=== PATIENT | male | born 1950 | race African-American/Black ===

== ENCOUNTER 2019-03-01 15:50 | Inpatient (IN) ==
[2019-03-01] MEDS ORDERED: ASPIRIN PO ONE (15:56)
--- NOTE | 2019-03-01 16:02 | EKG Report ---
Test Performed on : 03/01/2019 3:52:29 PM Test Reason : cp Blood Pressure : / mmHG Vent. Rate : 064 BPM Atrial Rate : 340 BPM P-R Int : 000 ms QRS Dur : 094 ms QT Int : 422 ms P-R-T Axes : 000 -35 188 degrees QTc Int : 435 ms Atrial fibrillation. Left axis deviation ST & T wave abnormality, consider lateral ischemia Abnormal ECG No previous ECGs available Unconfirmed Result
[2019-03-01 16:30] LABS: BASO# 0.05 X1000 (0.0-0.2); BASO% 0.3 % (0.0-0.8); EOS# 0.12 X1000 (0.0-0.7); EOS% 0.8 % (0.0-10.0); HEMATOCRIT 37.9 % (42.0-52.0); HEMOGLOBIN 12.1 g/dL (14.0-18.0); IMM GRAN# 0.05 X1000 (0.0-0.04); IMM GRAN% 0.3 % (0.0-0.5); LYMPH# 2.02 X1000 (1.2-3.4); LYMPH% 12.7 % (20.5-51.1); MCH 28.5 PG (27-31); MCHC 31.9 g/dL (33-37); MCV 89.4 FL (81-99); MPV 10.1 FL (7.4-10.4); NEUT# 12.89 X1000 (1.4-6.5); NEUT% 80.9 % (42.2-75.2); PLT 264 X1000 (130-400); RBC 4.24 XMIL (4.7-6.1); RDW 14.9 % (11.5-14.5); WBC 15.93 X1000 (4.8-10.8)
[2019-03-01 16:34] LABS: INR 3.08; PROTIME 32.7 Seconds (11.0-16.0); PTT 35.6 Seconds (22.3-41.8)
--- NOTE | 2019-03-01 16:45 | PROVIDER DOCUMENTATION ---
HPI-Chest Pain - General Chief Complaint: Chest Pain Stated Complaint: CO Time Seen by Provider: 03/01/19 16:22 Source: patient, family Allergies/Adverse Reactions: Patient Allergies Allergy/AdvReac Type Severity Reaction Status Date / Time atorvastatin [From Lipitor] Allergy ANAPHYLAXIS Verified 03/01/19 16:41 Home Medications: Home Medication List Medication Instructions Recorded Confirmed Last Taken Type Allopurinol [Zyloprim] 300 mg PO DAILY 03/01/19 03/01/19 Unknown History Brimonidine 0.2% Ophth Soln 1 drp BOTH EYES Q8HR 03/01/19 03/01/19 Unknown History [Alphagan 0.2% Ophth Soln] Colchicine [Colcrys] 0.6 mg PO PRN PRN 03/01/19 03/01/19 Unknown History Diltiazem HCl [Cardizem Cd] 180 mg PO BID 03/01/19 03/01/19 Unknown History Ergocalciferol (Vitamin D2) 50,000 unit PO Q7D 03/01/19 03/01/19 02/22/19 History [Vitamin D2] Furosemide 10 mg PO DAILY 03/01/19 03/01/19 Unknown History Latanoprost/Pf [Latanoprost 0.005% 1 drp OPHTHALMIC (EYE) QHS 03/01/19 03/01/19 Unknown History Eye Drop] Losartan [Cozaar] 50 mg PO DAILY 03/01/19 03/01/19 Unknown History Rivaroxaban [Xarelto] 15 mg PO DAILY 03/01/19 03/01/19 Unknown History - History of Present Illness-CP Nature of Presenting Problem: 54 YO M pmh for CHF, CKD, Afib on Eliquis presents with CP x 4 hours that is left sided, non radiating, 4/10, no associated blurry vision, diaphoresis, SOB. at bedside. Follows with Cardiology in [place]. Location: reports: other (left sided) Chest Pain Radiation: reports: no radiation Quality of Pain: reports: aching, throbbing Severity in ED: mild Onset/Duration: 4-6 hours ago Timing: still present Context/Activities at Onset: reports: none Modifying Factors: improves with: nothing Associated Symptoms: denies: diaphoresis, nausea, shortness of breath, syncope, vomiting, weakness Nitro Today/Relief: no nitro taken today Aspirin Treatment Today: no aspirin today Similar Symptoms Previously?: Yes Recently Seen Here or By Another Healthcare Provider: No Review of Systems - Adult - REVIEW OF SYSTEMS - ADULT Constitutional: reports: see HPI. denies: chills, fever Eyes: reports: no symptoms reported. denies: blurred vision, double vision Ears, Nose, Mouth & Throat: reports: no symptoms reported Cardiovascular: reports: see HPI, chest pain. denies: edema Respiratory: denies: cough, shortness of breath, wheezing Gastrointestinal: reports: no symptoms reported Genitourinary: reports: no symptoms reported Musculoskeletal: reports: no symptoms reported Integumentary: reports: no symptoms reported Past History - Adult - PAST MEDICAL HISTORY-ADULT Review of Records: reports: Medications Reviewed, Social history reviewed & non- contributory. Major Childhood Illnesses: reports: denies history Cardiovascular: reports: A-Fib, CHF Respiratory: reports: denies history Gastrointestinal: reports: denies history Genitourinary: reports: kidney disease Other Conditions: reports: other (GOUT) - PRIOR SURGERIES/PROCEDURES Surgical/Procedure History: denies: recent surgery - FAMILY HISTORY Family History: reviewed, not pertinent - SOCIAL HISTORY Smoking: denies Substance Use: denies Living Situation: family Physical Exam-General - CONSTITUTIONAL General Appearance: appears well, alert, no apparent distress - EYES Eyes: PERRL/EOMI, pink conjunctivae, other (wears glasses) - HEAD, EARS, NOSE, MOUTH & THROAT HENMT: normocephalic/atraumatic, moist mucous membranes - NECK Neck: supple - RESPIRATORY Respiratory: lungs clear, normal breath sounds, no pleuratic chest pain, no respiratory distress, no accessory muscle use - CARDIOVASCULAR Cardiovascular: no edema, no murmur - GASTROINTESTINAL (ABDOMEN) Abdominal Exam: normal bowel sounds, non tender, soft - MUSCULOSKELETAL Extremity: normal range of motion, normal gait, no pedal edema - SKIN Integumentary: normal color, normal turgor, warm/dry - NEUROLOGIC Neurologic: grossly normal - PSYCHIATRIC Psych/Mental Status: normal mood/affect, oriented x 3 - HEART Score HEART Score: History: Slightly Suspicious HEART Score: ECG: Non-Specific Repolarization Disturbance/LBBB/PM HEART Score: Age: > or = 65 Years HEART Score: Risk Factors for Atherosclerotic Disease: 1 or 2 Risk Factors HEART Score: Troponin: < or = Normal Limit Total HEART Score:: 4 Progress - PLAN OF CARE/RESULTS Progress/Plan/Lab Results: Vital Signs - 8 hr 03/01/19 16:01 Temperature 97.3 F L Pulse Rate 66 Respiratory Rate 19 Blood Pressure 122/71 O2 Sat by Pulse Oximetry 99 Laboratory Results - last 24 hr 03/01/19 03/01/19 03/01/19 14:34 16:10 16:10 WBC 15.93 H RBC 4.24 L Hgb 12.1 L Hct 37.9 L MCV 89.4 MCH 28.5 MCHC 31.9 L RDW Std Deviation 14.9 H Plt Count 264 MPV 10.1 Immature Gran % (Auto) 0.3 Neut % (Auto) 80.9 H Lymph % (Auto) 12.7 L Beauregard % (Auto) 5.0 Eos % (Auto) 0.8 Baso % (Auto) 0.3 Immature Gran # (Auto) 0.05 H Neut # (Auto) 12.89 H Lymph # (Auto) 2.02 Beauregard # (Auto) 0.80 H Eos # (Auto) 0.12 Baso # (Auto) 0.05 PT 32.7 H INR 3.08 PTT (Actin FS) 35.6 Sodium 138 Potassium 3.8 Chloride 95 L Carbon Dioxide 18 L Anion Gap 25 BUN 27 H Creatinine 2.4 H Estimated GFR/1.73 m2 32 BUN/Creatinine Ratio 11 Glucose 393 H Calculated Osmolality 297 Calcium 8.9 Total Bilirubin 0.75 AST 20 ALT 8 L Alkaline Phosphatase 66 Creatine Kinase 188 Troponin T Vbr-[id number] Pept Total Protein 8.7 H Albumin 4.2 Globulin 4.5 Albumin/Globulin Ratio 0.9 03/01/19 03/01/19 16:10 16:10 WBC RBC Hgb Hct MCV MCH MCHC RDW Std Deviation Plt Count MPV Immature Gran % (Auto) Neut % (Auto) Lymph % (Auto) Beauregard % (Auto) Eos % (Auto) Baso % (Auto) Immature Gran # (Auto) Neut # (Auto) Lymph # (Auto) Beauregard # (Auto) Eos # (Auto) Baso # (Auto) PT INR PTT (Actin FS) Sodium Potassium Chloride Carbon Dioxide Anion Gap BUN Creatinine Estimated GFR/1.73 m2 BUN/Creatinine Ratio Glucose Calculated Osmolality Calcium Total Bilirubin AST ALT Alkaline Phosphatase Creatine Kinase Troponin T < 0.010 [id number] Pept 1925 H Total Protein Albumin Globulin Albumin/Globulin Ratio Orders Category Date Time Status Cardiac Monitoring DIRECTED Care 03/01/19 15:56 Active Oxygen Therapy- ED Nursing DIRECTED Care 03/01/19 15:56 Active CHEST-2 VIEWS [RAD] Stat Exams 03/01/19 15:56 Completed CBC WITH ELECTRONIC DIFF [HEME] Stat Lab 03/01/19 16:10 Completed CK PROFILE [SP CHEM] Stat Lab 03/01/19 16:10 Completed COMPREHENSIVE METABOLIC PANEL [CHEM] Stat Lab 03/01/19 16:10 Completed PRO B-NATRIURETIC PEPTIDE Stat Lab 03/01/19 16:10 Completed PROTIME WITH INR [COAG] Stat Lab 03/01/19 14:34 Completed PTT [COAG] Stat Lab 03/01/19 14:34 Completed TROPONIN T Stat Lab 03/01/19 16:10 Completed 0.9% Sodium Chloride Inj [Ns] 500 ml Med 03/01/19 17:44 Discontinued IV 999 mls/hr Aspirin Med 03/01/19 15:56 Discontinued 325 mg PO NOW ONE Insulin Lispro [Humalog] Med 03/01/19 17:51 Discontinued 5 units SUBQ NOW ONE Morphine Med 03/01/19 17:51 Discontinued 4 mg IV NOW ONE CP/SOB/Palp >45 yrs of Age Stat Oth 03/01/19 15:56 Ordered EKG [EKG] Stat Ther 03/01/19 15:56 Draft Result Diagrams: 03/01/19 16:10 03/01/19 16:10 - REASSESSMENT Reassessment #1 Time Reassessed: 17:37 Status: unchanged (pt was given ASA upon arrival with no improvement in CP. labs reviewed and showing hyperglycemia and 15k WBC with elevated creat, however pt has hx of CKD. plan for admission, CP workup.) - EKG 1 Time of EKG reading by physician:: 16:03 EKG Read and Signed by:: Liborio Austin EKG Interpretation (*Must complete 3 of following elements*): Abnormal Rate: 64 Rhythm: Afib [place]: left QRS: normal ST Wave: non-specific ST changes Prior EKG Comparison: no prior EKG - CONSULTS/PCP/HOSPITALIST Notification #1 *Consult/PCP/Hospitalist*: Spoke with Jessica, admitting to Dr. Hensley Time Discussed: 18:23 Consult Disposition: Will see in ED Departure - Departure Date of Disposition Decision: 03/01/19 Time of Disposition Decision: 17:47 DIAGNOSIS: Leukocytosis, Chest pain, Hyperglycemia Disposition: ADMITTED INPATIENT 09 Certified Medical Emergency: Emergent Condition: Stable Referrals and Follow-Ups: None,PCP [Primary Care Provider] - - Critical Care Note This patient required my direct & personal management of CC.: No Attestation - Physician/ SHERRIE Attestation The physician spent face to face time with patient:: Yes Advanced Practice Provider documentation review:: Supervising physician onsite and consulted in the evaluation and care of this patient. The physician did have a face to face encounter with the patient.
[2019-03-01 16:53] LABS: ALB/GLOB RATIO 0.9; ALBUMIN 4.2 g/dL (3.5-5.0); CALCIUM 8.9 mg/dL (8.8-10.2); CREATININE 2.4 mg/dL (0.7-1.2); POTASSIUM 3.8 mmol/L (3.5-5.1); TOTAL BILIRUBIN 0.75 mg/dL (0.20-1.00); TOTAL PROTEIN 8.7 g/dL (6.3-8.3)
--- NOTE | 2019-03-01 17:32 | Diag Imaging Result Doc PS360 ---
EXAM: CHEST-2 VIEWS INDICATION: cp TECHNIQUE: 2 views COMPARISON: None. FINDINGS: The lungs are grossly clear. There is no discrete pleural fluid collection or pneumothorax. The cardiomediastinal silhouette and central vasculature are grossly unremarkable. IMPRESSION: No evidence of acute pathology by plain radiograph. Electronically signed by Nitesh Pérez 03/01/2019 5:30 PM
[2019-03-01] MEDS ORDERED: NS 500 ML IV ONE (17:44)
[2019-03-01] MEDS ORDERED: MORPHINE IV ONE (17:51)
[2019-03-01] MEDS ORDERED: HUMALOG SUBQ ONE (17:51)
[2019-03-01] MEDS ORDERED: COLCRYS PO PRN (19:33)
[2019-03-01 19:49] LABS: ALLEN TEST YES; BE -2.3 mmoll (-3.0-3.0); BLOOD TYPE ARTERIAL; HCO3-(ACT) 23.1 mmoll (20.0-26.0); METHB 1.1 % (0.0-1.5); O2(CT) 15.2 mL/dL (15.0-23.0); O2HB 94.5 % (95.0-99.0); PCO2(98.6) 38 mmHg (35-45); PO2(98.6) 73 mmHg (60-100); SAMPLE BLOOD; SAO2 97.6 % (95.0-100.0); THB 11.4 g/dL (11.5-17.4); pH(98.6) 7.38 (7.35-7.45)
[2019-03-01 19:50] LABS: MODALITY ROOM AIR
[2019-03-01] MEDS ORDERED: NS 1,000 ML IV SCH (20:30)
[2019-03-01] MEDS ORDERED: MORPHINE IV PRN (20:48)
[2019-03-01] MEDS ORDERED: ZOFRAN IV PRN (20:48)
[2019-03-01] MEDS ORDERED: TYLENOL PO PRN (20:48)
[2019-03-01] MEDS: HUMALOG SUBQ SCH (20:57)
[2019-03-01] MEDS: NITROGLYCERIN TOP SCH (21:01)
[2019-03-01] MEDS: CARDIZEM CD PO SCH (21:01)
[2019-03-01 21:48] LABS: HEMOGLOBIN A1C 6.1 % (4.8-6.0)
--- NOTE | 2019-03-01 22:17 | HISTORY AND PHYSICAL ---
CHIEF COMPLAINT: Chest pain. HISTORY OF PRESENT ILLNESS: This is a 69-year-old male who comes in with complaint of chest pain left sided that did not radiate. He stated it was around 5/10. He did have shortness of breath and diaphoresis. Patient is known to have congestive heart failure, chronic kidney disease and atrial fibrillation which he is chronically anticoagulated for. He apparently took an aspirin which did not ease his pain. We will try nitroglycerin patches. The patient is reportedly unable to take statins for his hyperlipidemia. He will be admitted to the medical floor for further evaluation and treatment. PAST MEDICAL HISTORY: See HPI. PREVIOUS SURGICAL HISTORY: Right eye detached retinal repair and bunionectomy. SOCIAL HISTORY: He lives alone. No tobacco, alcohol, illicit drugs. He is retired from the [employer]. FAMILY HISTORY: Paternal diabetes mellitus. States that he is not sure of what or the reason a lot of people in his family as [place] was [place] when a lot of them passed. ALLERGIES: Statins causing anaphylaxis. HOME MEDICATIONS: Allopurinol 300 mg p.o. daily, Alphagan ophthalmic solution 0.25, Colcrys 0.6 mg p.o. daily, diltiazem 180 mg p.o. b.i.d., vitamin D2 of 50,000 units p.o. q.7 days, furosemide 10 mg p.o. daily, latanoprost 0.005% eye drop both eyes at bedtime, losartan 50 mg p.o. daily, Xarelto 50 mg p.o. daily. REVIEW OF SYSTEMS: Fourteen-point review of systems conducted with the patient. Pertinent positives listed above in HPI. All other systems reviewed and found to be negative. PHYSICAL EXAMINATION: VITAL SIGNS: Temperature 97.3, pulse 66, respirations 19, blood pressure 122/71, oxygen saturation 99% on room air. GENERAL: Pleasant 69-year-old male alert and oriented times 3, answers all questions appropriately. He is lying in the ER stretcher in no acute distress. HEENT: Head is atraumatic, normocephalic. Pupils equal, round, reactive to light. Extraocular eye movement is intact. Sclerae are anicteric. Conjunctiva is pink. Oral mucosa is moist. NECK: Supple. No JVD. No thyromegaly. Trachea is midline. No cervical lymphadenopathy. CARDIAC: S1, S2 appreciated. Irregularly irregular. No murmurs, gallops, rubs. LUNGS: Clear to auscultation bilaterally. No rhonchi, wheezes, rales. Symmetric rise and fall with respirations. ABDOMEN: Soft, nondistended, nontender. Bowel sounds present all 4 quadrants, normoactive. No pulsatile mass. No organomegaly. EXTREMITIES: No clubbing, cyanosis or edema. Two-plus pedal pulses bilaterally. GENITOURINARY: No bladder distention. Patient voids. Otherwise deferred. NEUROLOGICAL: Alert and oriented times 3. Cranial nerves 2 through 12 appear to be grossly intact. DIAGNOSTIC DATA: Chest x-ray: No effusions or infiltrates. No increased pulmonary vascular congestion. Lungs are grossly normal. LABORATORY DATA: WBC 15.93. Hemoglobin 12.1. Hematocrit 37.9. Platelet count 264. PT 32.7. INR 3.08. Sodium 138. Potassium 3.8. Chloride 95. Carbon dioxide 18. BUN 27. Creatinine 2.4. Glucose 393. ASSESSMENT AND PLAN: 1. Chest pain, rule out acute myocardial infarction. We will order stress test for tomorrow morning, repeat EKG, trend cardiac enzymes. We will give morphine as needed for pain, nitroglycerin 1 inch topically q.6 hours. 2. Hypertension. Continue home medication. 3. Diabetes mellitus type 2 with hyperglycemia. Check hemoglobin A1c, sliding scale blood sugars q.4 hours which will be treated with low-dose sliding scale. 4. Leukocytosis. I am unsure if this is reactive. A urine culture here is pending. The patient does not have other complaints. His chest x-ray was unremarkable. He denied any type of fever and chills or cough. We will check urinalysis and see if it warrants giving patient antibiotics for possible urinary tract infection. 5. Chronic kidney disease, appears to be stage 3. We do not have the patient's baseline creatinine. He was given a liter bolus in the emergency room. We will continue gentle hydration with crystalloids overnight. Recheck laboratory data tomorrow morning. We will be mindful of his fluid volume status with strict I's and O's as he does have a history of congestive heart failure. Further recommendations per patient clinical course. Dictated by GONZALEZ Cornell for Hayder Hensley MD I have performed a face to face diagnostic evaluation. Labs/Xrays- reviewed. Exam- Chest- clear, CV- regular. A/P- Chest Pain- Admit, Cardiac work up, Cardiology consult. Dr. Hensley cc: GONZALEZ Cornell MD [facility]
[2019-03-01] MEDS: XALATAN 0.005% OPH SOLN BOTH EYES SCH (23:14)
[2019-03-01] MEDS: ALPHAGAN 0.2% OPHTH SOLN BOTH EYES SCH (23:14)
[2019-03-02] MEDS: NITROGLYCERIN TOP SCH ×4 (02:50→23:59)
[2019-03-02] MEDS: HUMALOG SUBQ SCH ×6 (03:51→20:16)
[2019-03-02 04:49] LABS: URINE SOURCE CLEAN CATCH
[2019-03-02 04:51] LABS: BILIRUBIN URINE NEGATIVE (NEGATIVE); BLOOD URINE NEGATIVE (NEGATIVE); COLOR YELLOW; GLUCOSE URINE NEGATIVE (NEGATIVE); KETONE URINE NEGATIVE (NEGATIVE); LEUKOCYTES URINE LARGE (NEGATIVE); NITRITE URINE NEGATIVE (NEGATIVE); PH URINE 5.5; PROTEIN URINE 50 mg/dL (NEGATIVE); SP GRAVITY URINE 1.016; TURBIDITY URINE HAZY (CLEAR); UROBILINOGEN URINE NORMAL (NORMAL)
[2019-03-02 04:53] LABS: UR EPITHELIAL CELLS <10 /HPF (<10); URINE BACTERIA NEGATIVE /HPF; URINE RBC <10 /HPF (<10); URINE WBC TNTC /HPF (<10)
[2019-03-02] MEDS: ALPHAGAN 0.2% OPHTH SOLN BOTH EYES SCH ×3 (04:58→20:23)
[2019-03-02 05:48] LABS: BASO# 0.02 X1000 (0.0-0.2); BASO% 0.2 % (0.0-0.8); EOS# 0.13 X1000 (0.0-0.7); EOS% 1.2 % (0.0-10.0); HEMATOCRIT 32.3 % (42.0-52.0); HEMOGLOBIN 10.4 g/dL (14.0-18.0); IMM GRAN# 0.02 X1000 (0.0-0.04); IMM GRAN% 0.2 % (0.0-0.5); LYMPH# 1.97 X1000 (1.2-3.4); LYMPH% 17.8 % (20.5-51.1); MCH 28.3 PG (27-31); MCHC 32.2 g/dL (33-37); MONO# 0.62 X1000 (0.11-0.59); MONO% 5.6 % (1.7-9.3); MPV 10.1 FL (7.4-10.4); NEUT# 8.32 X1000 (1.4-6.5); PLT 200 X1000 (130-400); RBC 3.67 XMIL (4.7-6.1); RDW 14.9 % (11.5-14.5); WBC 11.08 X1000 (4.8-10.8)
[2019-03-02] MEDS: PRILOSEC PO SCH (06:08)
[2019-03-02 06:12] LABS: INR 2.36; PROTIME 26.4 Seconds (11.0-16.0)
[2019-03-02 06:37] LABS: CALCIUM 8.1 mg/dL (8.8-10.2); CREATININE 2.4 mg/dL (0.7-1.2); POTASSIUM 3.8 mmol/L (3.5-5.1)
--- NOTE | 2019-03-02 06:41 | EKG Report ---
Test Performed on : 03/02/2019 06:13:58 AM Test Reason : cp Blood Pressure : / mmHG Vent. Rate : 084 BPM Atrial Rate : 267 BPM P-R Int : 000 ms QRS Dur : 094 ms QT Int : 386 ms P-R-T Axes : 000 -51 180 degrees QTc Int : 456 ms Atrial fibrillation. with a competing junctional pacemaker. Left axis deviation T wave abnormality, consider lateral ischemia Abnormal ECG Confirmed by Shayy BALDERRAMA, Derian Maxwell ([id number]) on 03/02/2019 8:48:45 AM
[2019-03-02] MEDS ORDERED: LEXISCAN ONE (08:57)
[2019-03-02] MEDS ORDERED: VITAMIN D PO SCH (09:00)
[2019-03-02] MEDS ORDERED: COZAAR PO SCH (09:00)
[2019-03-02] MEDS ORDERED: LASIX PO SCH (09:00)
[2019-03-02 10:11] LABS: UNBOUND IRON 195 ug/dL (112-346)
[2019-03-02 10:12] LABS: IRON SATURATION 20 %; TIBC 245 ug/dL; TOTAL IRON 50 ug/dL (53-167)
[2019-03-02 10:45] LABS: FERRITIN 307 ng/mL (30-400)
[2019-03-02] MEDS: XARELTO PO SCH (11:57)
[2019-03-02] MEDS: CARDIZEM CD PO SCH ×2 (11:58→20:16)
--- NOTE | 2019-03-02 12:25 | PROGRESS NOTE ---
DATE: 03/02/2019 SUBJECTIVE: Patient resting comfortable in bed. Not in any obvious distress. OBJECTIVE: Vital signs: Temperature 97.7 degrees, pulse 82, respiratory rate 18, blood pressure 135/82, oxygen saturation is 99%. HEENT: Atraumatic, normocephalic. Cardiovascular: S1, S2. Respiratory: Has evidence of good air entry bilaterally. Abdomen: Soft, nontender. No masses felt. Extremities: No evidence of edema. Central nervous system: No obvious focal deficits noted. LABORATORY DATA: WBC is 11.08, hematocrit is 32.3, with a platelet count of 200,000. INR is 2.36. Sodium is 137, potassium 3.8, chloride is 101, bicarb 24, BUN is 31, creatinine 2.4. Serum iron is 50. Calcium 8.1. UA shows large amount of leukocytes with numerous WBCs. EKG shows evidence of atrial fibrillation with normal ventricular rate. X-ray chest shows no acute pathology. ASSESSMENT AND PLAN: 1. Chest pain. Rule out coronary artery disease. Continue patient on aspirin and nitroglycerin topical p.r.n. for chest pain. The patient has had cardiac stress test. Results are currently pending. Lipid panel shows a raised LDL. Will add statin to the patient's current regimen. 2. Atrial fibrillation. Heart rate is controlled. Continue Cardizem as well as anticoagulation (rivaroxaban). 3. Leukocytosis. No current focus of infection identified at this time. The patient's urinalysis looks suspicious. Urine and blood cultures are currently pending. 4. Diabetes mellitus. Continue blood sugar monitor as well as sliding scale insulin. 5. Hypertension. Continue current antihypertensive regimen. 6. Renal insufficiency, probably chronic. Continue IV hydration. Follow up on renal function. Check intact PTH level, urine electrolytes as well as 25 hydroxy vitamin D level as well as a renal ultrasound. 7. Deep vein thrombosis prophylaxis. The patient is on Xarelto. 8. Gastrointestinal prophylaxis. Continue proton pump inhibitor. cc: Yvan Fan MD
--- NOTE | 2019-03-02 14:30 | Diag Imaging Result Doc PS360 ---
EXAM: CT THORAX W/O CONTRAST 03/02/2019 HISTORY: chest pain TECHNIQUE: This exam was performed using automated exposure control, adjustment of mA or kV according to patient size, and/or use of iterative reconstruction technique. COMMENT: There are no previous studies available for comparison. There are some calcifications in the thoracic aorta. There are calcified nodes in the left and right hilum. There are no abnormal fluid collections. There are calcified granulomata in the right upper lobe and minimal linear opacities are present in the lung bases particularly in the posterior costophrenic sulcus of the left lower lobe which may be due to atelectasis or fibrosis. There is no evidence of pulmonary parenchymal consolidation otherwise. The regional skeleton is intact. IMPRESSION: Granulomatous changes and minimal atelectasis as described. Electronically signed by Tim Roberts 03/02/2019 2:28 PM
--- NOTE | 2019-03-02 16:01 | Diag Imaging Result Document ---
PROCEDURE NAME: MYOCARDIAL PERF SCAN, STR/REST - 03/02/2019 STUDY: Rest/stress Lexiscan myocardial perfusion study. INDICATION: Patient with atrial fibrillation, chest pain. DESCRIPTION: The patient came into the nuclear laboratory, received resting injection of technetium 99 sestamibi 14.4 mCi. Multiple tomographic views of the cardiac structures were obtained at rest. Subsequently, the patient underwent infusion of Lexiscan 0.4 mg. At peak infusion, injected with technetium 99 sestamibi 22.9 mCi. Multiple tomographic views of the cardiac structures were obtained following the completion of the protocol. SUMMARY OF THE ELECTROCARDIOGRAPHIC PORTION OF THE STUDY: Resting ECG shows atrial fibrillation, rate is 94 beats per minute. Resting blood pressure 139/80. Resting ECG shows coarse atrial fibrillation with controlled ventricular rate and a nonspecific T wave abnormality. During the protocol, the heart rate increased to a maximum of 110 beats per minute, blood pressure dropped to 121/69. The patient reported no symptoms. There was mild chest tightness, which disappeared. In summary, the electrocardiographic response to an infusion of Lexiscan is deemed to be nonspecific. The patient has atrial fibrillation as underlying rhythm. SUMMARY OF THE MYOCARDIAL PERFUSION PORTION OF THE STUDY: Poststress tomographic views of the left ventricle showed essentially normal myocardial perfusion. There is no convincing evidence of postexercise defect. The rest images showed normal perfusion. Polar plots revealed the same. There is no convincing definite evidence of any inducible ischemia nor myocardial scar. Gated SPECT shows normal left ventricular systolic function, ejection fraction 52% with normal ventricular volumes, no wall motion abnormality. The lung/heart ratio is normal at 0.21. TID is 0.88. SUMMARY: This study shows: 1. Abnormal resting ECG with atrial fibrillation and nonspecific T wave abnormality with an unremarkable response to infusion of Lexiscan. 2. Essentially normal poststress myocardial perfusion scan. There is no scintigraphic evidence of pharmacologically-induced myocardial ischemia. 3. A trivial degree of basal inferior attenuation artifact is acknowledged. 4. Normal left ventricular systolic function, ejection fraction of 52% with normal ventricular volumes, no wall motion abnormality. Clinical correlation recommended. cc: MD Pasquale Perry CRNP
--- NOTE | 2019-03-02 16:08 | Diag Imaging Result Doc PS360 ---
EXAM: US RENAL 2 (RETROPER) COMPLETE 03/02/2019 HISTORY: renal insufficiency TECHNIQUE: Renal ultrasound COMMENT: The urinary bladder is not distended. There is no evidence of hydronephrosis or mass. The right kidney is 9.8 x 4.5 x 4.7 cm the left is 9.8 x 4.1 x 5 cm. There are no previous studies. IMPRESSION: No evidence of obstructive uropathy. Electronically signed by Tim Roberts 03/02/2019 4:06 PM
[2019-03-02 16:54] LABS: UR CREAT RANDOM 95.2 mg/dL (14-26)
--- NOTE | 2019-03-02 17:34 | ECHO REPORT ---
ORDER DATE: 03/02/2019 INDICATION: Congestive heart failure, chronic kidney disease, atrial fibrillation, chest pain. M-MODE MEASUREMENTS: Left ventricle end diastole: 5.1. Left ventricle end systole: 3.6. Posterior wall: 1.1. Interventricular septum: 1.2. SUMMARY OF 2-DIMENSIONAL IMAGIN. Left ventricular function is normal. Ejection fraction is estimated visually at 60%. 2. The atria appear to be mildly enlarged. 3. The mitral valve looks normal with a mild degree of regurgitation. 4. The patient is in atrial fibrillation. 5. Pulsed wave Doppler of mitral inflow shows single filling wave. 6. Diastolic dysfunction cannot be confirmed or ruled out because of the atrial fibrillation. The velocity of the mitral annulus appears to be good. 7. Pulsed wave Doppler of pulmonary venous flow shows possible evidence of a diastolic component. 8. The aortic valve is grossly normal. Color flow mapping unremarkable. 9. The tricuspid valve shows a mild degree of regurgitation. Pulmonary pressure is estimated at 34 mmHg. 10.The pulmonic valve is unremarkable. 11.There is no pericardial effusion, no mass, no thrombus. Clinical correlation recommended. cc: MD Yvan Perry MD
[2019-03-02] MEDS: LIPITOR PO SCH ×2 (20:16→20:19)
[2019-03-02] MEDS: XALATAN 0.005% OPH SOLN BOTH EYES SCH (20:23)
[2019-03-03] MEDS: HUMALOG SUBQ SCH ×2 (00:43→05:28)
[2019-03-03] MEDS: ALPHAGAN 0.2% OPHTH SOLN BOTH EYES SCH (05:29)
[2019-03-03] MEDS: PRILOSEC PO SCH (06:07)
[2019-03-03] MEDS: NITROGLYCERIN TOP SCH (06:07)
[2019-03-03] MEDS: CARDIZEM CD PO SCH (08:03)
[2019-03-03] MEDS: XARELTO PO SCH (08:04)
[2019-03-03 08:47] VITALS: BP 143/94
[2019-03-03 13:42] LABS: INR 1.68; PROTIME 20.1 Seconds (11.0-16.0)
--- NOTE | 2019-03-03 14:23 | DISCHARGE SUMMARY ---
ADMISSION DATE: 03/01/2019 DISCHARGE DATE: 03/03/2019 PRIMARY CARE PHYSICIAN: None. ADMISSION DIAGNOSES: 1. Chest pain, rule out acute [place]. 2. Hypertension. 3. Diabetes type 2 with hyperglycemia. 4. Leukocytosis. 5. Chronic kidney disease, appears to be stage III. DISCHARGE DIAGNOSES: 1. Chest pain, ruled out. 2. Atrial fibrillation, rate controlled on chronic anticoagulation of Xarelto. 3. Leukocytosis, resolved. 4. Diabetes type 2 with hyperglycemia. 5. Hypertension. 6. Chronic kidney disease, appears to be stage III. SUMMARY OF FINDINGS: This is a 69-year-old male who presented with complaints of left-sided chest pain that did not radiate, rated it a 5/10 for pain. Had some shortness of breath and diaphoresis. Is known to have congestive heart failure, chronic kidney disease and atrial fibrillation and is on chronic anticoagulation. Aspirin did not ease his pain, so he was admitted. We trended his cardiac enzymes that were negative times 4 to 5 sets. We did a myocardial perfusion scan that was read as essentially normal post-stress myocardial perfusion scan. We did a chest CT on 03/02/2019 that showed granulomatous changes, and minimal atelectasis. Renal ultrasound on 03/02/2019 showed no evidence of obstructive uropathy. Echocardiogram on 03/02/2019 showed an ejection fraction of 60% with a normal left ventricular function so it was felt that he can safely now be discharged home. DISCHARGE MEDICATIONS: Alphagan 0.2% ophthalmic solution 1 drop to both eyes every 8 hours, colchicine 0.6 mg p.o. p.r.n., Diltiazem 180 mg p.o. b.i.d., vitamin D2 50,000 units p.o. every 7 days, latanoprost 1 drop OP at bedtime, Xarelto 15 mg p.o. daily, allopurinol 300 mg p.o. daily, Lasix 10 mg p.o. daily, and losartan 50 mg p.o. daily. FOLLOWUP: He will need to follow up with a primary care physician. We will give him the physician referral line as he does not currently have a primary care physician. TIME SPENT: This is a 35 minute discharge. Dictated by GONZALEZ Cabrera for Arnold Murphy MD cc: LucieGONZALEZ Roy MD
--- NOTE | 2019-03-03 19:19 | DISCHARGE SUMMARY ---
ADMISSION DATE: 03/01/2019 DISCHARGE DATE: 03/03/2019 ADDENDUM: The patient presented to the hospital with chest pain which currently has resolved. He has had a stress test and echo which were normal. He also had a CT which was normal. He is not currently on a statin, nor will he be discharged home on one. The patient notes that statins in the past have caused renal failure, and he refuses to take a statin for that reason. Does have atrial fibrillation that is currently controlled, diabetes and hypertension. We will discharge him home with his home medications. He will follow up with his primary care in 1 to 2 weeks. cc: Arnold Murphy MD
== END 2019-03-03 11:23 | disposition home or self-care (01) | DRG 313 ==
LOC: ED 15:50 → SUATTDRO 19:57 → 2N 19:57 → 1N 20:23
PROVIDERS: ATTEND Family Medicine